=== PATIENT | male | born 1955 | race American Indian/Alaskan Native ===

== ENCOUNTER 2017-12-29 11:09 | Emergency (ER) | payer MEDICAID ==
[2017-12-29 11:17] VITALS: BP 155/100
[2017-12-29] MEDS ORDERED: TYLENOL PO ONE (11:43)
--- NOTE | 2017-12-29 13:24 | XRay Report ---
RIGHT FINGERS, 3 VIEWS History: Right thumb pain. Findings: Medial dislocation is identified at the first metacarpophalangeal joint. There are a few tiny bone fragments in the adjacent soft tissues which could represent small chip fractures. The remaining right fingers are intact. No joint pathology is appreciated. Impression: Dislocation at the first metacarpophalangeal joint. Possible associated chip fractures.
[2017-12-29] MEDS ORDERED: NORCO 5/325 PO ONE (14:14)
--- NOTE | 2017-12-29 15:10 | Emergency Department Report ---
HPI - General Chief Complaint: Multiple Trauma Time Seen by Provider: 12/29/17 11:52 - HPI HPI: 62-year-old -Ser[place] male fell yesterday landing on right hand felt his right thumb popped out and has not been able to move right thumb since. 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 No numbness no tingling no change in color. ED Past Medical Hx - Past Medical History Previous Medical History?: Yes Hx Hypertension: Yes - Surgical History Past Surgical History?: Yes Additional Surgical History: surgery for spinal stenosis - Social History Smoking Status: Current Every Day Smoker Substance Use Type: Marijuana - Medications Home Medications: Home Medications Medication Instructions Recorded Confirmed Last Taken Type Methocarbamol [Robaxin-750] 750 mg PO Q8HR PRN #14 tablet 12/29/17 Unknown Rx ED Review of Systems ROS: Stated complaint: HAND PAIN Other details as noted in HPI Constitutional: no symptoms reported Cardiovascular: denies: chest pain Musculoskeletal: joint swelling, arthralgia Physical Exam - Physical Exam Vital Signs: Vital Signs 12/29/17 12/29/17 12/29/17 11:13 11:55 12:55 Temperature 98.6 F Pulse Rate 68 Respiratory 16 18 18 Rate Blood Pressure 155/100 O2 Sat by Pulse 99 Oximetry 12/29/17 14:38 Temperature Pulse Rate Respiratory 18 Rate Blood Pressure O2 Sat by Pulse Oximetry Physical Exam: - Physical Exam - General Limitations: No Limitations General appearance: alert, in no apparent distress, obese - Head Head exam: Present: atraumatic, normocephalic - Eye Eye exam: Present: normal appearance - ENT ENT exam: Present: mucous membranes moist - Neck Neck exam: Present: normal inspection - Respiratory Respiratory exam: Present: normal lung sounds bilaterally. Absent: respiratory distress - Cardiovascular Cardiovascular Exam: Present: normal rhythm. Absent: systolic murmur, diastolic murmur, rubs, gallop - GI/Abdominal GI/Abdominal exam: Present: soft, normal bowel sounds - Extremities Exam Extremities exam: Present: Right thumb with dislocation of PIP - Back Exam Back exam: Present: normal inspection - Neurological Exam Neurological exam: Present: alert, oriented X3 - Psychiatric Psychiatric exam: normal affect and mood - Skin Skin exam: Present: warm, dry, intact, normal color. Absent: rash ED Course Vital Signs 12/29/17 12/29/17 12/29/17 11:13 11:55 12:55 Temperature 98.6 F Pulse Rate 68 Respiratory 16 18 18 Rate Blood Pressure 155/100 O2 Sat by Pulse 99 Oximetry 12/29/17 14:38 Temperature Pulse Rate Respiratory 18 Rate Blood Pressure O2 Sat by Pulse Oximetry - Orthopedic Joint Reduction Joint #1 Consent Obtained: verbal consent Time Out Performed: Yes Side: right Joint Reduction Location: other (thumb) Analgesia: none Shoulder Technique Used (if applicable): traction/counter-traction Post-Reduction Neuro Exam: intact Post-Reduction Vascular Exam: intact Post Reduction X-Ray Obtained: Yes Post Reduction X-Ray Results: reduced Splint Applied: Yes Patient Tolerated Procedure: well Critical care attestation.: If time is entered above; I have spent that time in minutes in the direct care of this critically ill patient, excluding procedure time. ED Disposition Clinical Impression: Dislocated finger Qualifiers: Encounter type: initial encounter Qualified Code(s): S63.259A - Unspecified dislocation of unspecified finger, initial encounter Finger fracture, right Qualifiers: Finger: thumb Fracture type: closed Fracture alignment: displaced Fracture healing: with routine healing Disposition: DC-01 TO HOME OR SELFCARE Is pt being admited?: No Does the pt Need Aspirin: No Condition: Stable Prescriptions: Methocarbamol [Robaxin-750] 750 mg PO Q8HR PRN #14 tablet PRN Reason: Pain Referrals: PRIMARY MD REYES [Primary Care Provider] - 3-5 Days LOBITO CHO MD [Staff Physician] - 3-5 Days
--- NOTE | 2017-12-29 15:26 | XRay Report ---
FINAL REPORT EXAM: XR FINGER(S) 2+V RT HISTORY: right thumb post reduction TECHNIQUE: Three views right 1st finger. PRIORS: None currently available. FINDINGS: Mild subluxation at the 1st MTP joint. No dislocation. Small punctate bone densities near the 1st metatarsal head may represent dystrophic calcifications or small chip fractures. No other fractures. There is no acute fracture. There is no evidence for healing fracture. There is no cortical destruction to suggest osteomyelitis. There are no suspicious osseous lesions. There are no radiopaque foreign objects. IMPRESSION: Punctate calcifications around the 1st metatarsal head may represent dystrophic calcifications or small chip fractures. Mild subluxation at the 1st MTP joint. Possible ligamentous injury.
== END 2017-12-29 15:27 | disposition home or self-care (01) ==
LOC: ED 11:09
DX: S63.114A Dislocation of metacarpophalangeal joint of right thumb, initial encounter (principal); I10 Essential (primary) hypertension; F17.200 Nicotine dependence, unspecified, uncomplicated; F12.10 Cannabis abuse, uncomplicated; Z88.6 Allergy status to analgesic agent; W18.30XA Fall on same level, unspecified, initial encounter; Y93.89 Activity, other specified; Y99.8 Other external cause status; Y92.89 Other specified places as the place of occurrence of the external cause